=== PATIENT | male | born 1970 | race Two or more races ===

== ENCOUNTER 2024-07-07 08:27 | Inpatient (IN) | payer MEDICAID, OTHER ==
[2024-07-07] VITALS (14 sets, daily range): BP systolic 94–214; BP diastolic 41–131; PULSE 74–96; RESP 10–24; TEMP 97.2–98.6; O2SAT 90–98
[~2024-07-07] VITALS: Ht 177.8 cm; Wt 136.6 kg
[2024-07-07] MEDS: hydrALAZINE HCL 20 MG/ML VL IV ONE (08:57)
[2024-07-07 09:10] LABS: Basophils # (auto) 0 10 ^3/uL (0-0.2); Eosinophils # (auto) 0.2 10 ^3/uL (0-0.8); Eosinophils % (auto) 4.4 % (0.0-7.0); Hematocrit 52.4 % (41.0-53.0); Hemoglobin 16.9 g/dL (13.5-17.5); Lymphocytes # (auto) 1.7 10 ^3/uL (0.4-5.4); Lymphocytes % (auto) 39.3 % (10.0-50.0); Mean Corpuscular Hemoglobin 30.5 pg (28.0-32.0); Mean Corpuscular Hgb Conc. 32.3 g/dL (32.0-36.0); Mean Corpuscular Volume 94.2 fL (80.0-100.0); Monocytes # (auto) 0.7 10 ^3/uL (0-1.3); Monocytes % (auto) 15.4 % (0.0-12.0); Neutrophils # (auto) 1.8 10 ^3/uL (1.6-8.6); Neutrophils % (auto) 39.9 % (37.0-80.0); Nucleated Red Blood Cells % 0.2 %; Platelet Count (auto) 173 10^3/uL (140-450); Red Blood Cells 5.56 10^6/uL (4.5-5.90); Red Cell Distribution Width 14.2 % (11.8-14.3); White Blood Cell 4.4 10^3/uL (4.4-10.8)
--- NOTE | 2024-07-07 09:37 | DVH ---
XY CHEST TWO VIEWS ROUTINE, HISTORY: cp COMPARISON: None None TECHNICAL DATA: 2 view of the chest was obtained. FINDINGS: Lines and tubes: None Cardiomediastinal silhouette: normal Pulmonary vasculature: normal Lung expansion: normal Lung airspace: normal Lung interstitium: normal Pleura: normal Pneumothorax: no Bones: Unremarkable Other: no IMPRESSION: No acute intrathoracic abnormality.
[2024-07-07 09:52] LABS: Chloride 102 mmol/L (98-107); Potassium 4.1 mmol/L (3.5-5.1); Sodium 139 mmol/L (136-145)
--- NOTE | 2024-07-07 09:52 | ED.PDOC ---
HPI Comments 54-year-old male with PMHx HTN presents with a chief complaint of HTN and Chest Pain. Patient states that his pain is localized to his substernal region, nonradiating, describes as pressure, is consistent in timing, and rates his pain a 7/10. Patient mentions that he has noticed that his blood pressure has been running high for the past 2 weeks, but denies any medications. Patient is not compliant with his HTN medication as he states "I don't like waking up in the middle of the night to go pee". Patient is also a smoker. Chief Complaint: High Blood Pressure Time Seen by MD: 08:53 Primary Care Provider: none Reviewed Notes: Medications, Allergies Allergies: Coded Allergies: NO KNOWN ALLERGIES (Unverified , 07/07/24) Information Source: Patient Mode of Arrival: Ambulatory Severity: Moderate Timing: Days Duration: Since onset Prehospital treatment: None Location: Substernal Radiation: No Radiation Quality: Pressure Onset: At Rest Cardiac Risk Factors: Smoker, HTN PE Risk Factors: None History of: None Past Medical History PAST MEDICAL HISTORY: HTN Surgical History: Denies all surgeries Family History Family History: Reviewed,noncontributory to illness Social History Smoker: Cigarettes Alcohol: Denies ETOH Use Drugs: Denies Drug Use Lives In: Home Constitutional: denies: chills, diaphoresis, fatigue, fever, malaise, sweats, weakness, others EENTM: denies: blurred vision, double vision, ear bleeding, ear discharge, ear drainage, ear pain, ear ringing, eye pain, eye redness, hearing loss, mouth pain, mouth swelling, nasal discharge, nose bleeding, nose congestion, nose pain, photophobia, tearing, throat pain, throat swelling, voice changes, others Respiratory: denies: cough, hemoptysis, orthopnea, SOB at rest, shortness of breath, SOB with excertion, stridor, wheezing, others Cardiovascular: reports: chest pain; denies: dizzy spells, diaphoresis, Dyspnea on exertion, edema, irregular heart beat, left arm pain, lightheadedness, palpitations, PND, syncope, others Gastrointestinal: denies: abdomen distended, abdominal pain, blood streaked bowels, constipated, diarrhea, dysphagia, difficulty swallowing, hematemesis, melena, nausea, poor appetite, poor fluid intake, rectal bleeding, rectal pain, vomiting, others Genitourinary: denies: burning, dysuria, flank pain, frequency, hematuria, incontinence, penile discharge, penile sore, pain, testicle pain, testicle swelling, urgency, others Neurological: denies: dizziness, fainting, headache, left sided numbness, left sided weakness, numbness, paresthesia, pre-existing deficit, right sided numbness, right sided weakness, seizure, speech problems, tingling, tremors, weakness, others Musculoskeletal: denies: back pain, gout, joint pain, joint swelling, muscle pain, muscle stiffness, neck pain, others Integumetry: denies: bruises, change in color, change in hair/nails, dryness, laceration, lesions, lumps, rash, wounds, others Allergic/Immunocompromised: denies: Difficulty Healing, Frequent Infections, Hives, Itching, others Hematologic/Lymphatic: denies: anemia, blood clots, easy bleeding, easy bruising, swollen glands, others Endocrine: denies: excessive hunger, excessive sweating, excessive thirst, excessive urination, flushing, intolerance to cold, intolerance to heat, unexplained weight gain, unexplained weight loss, others Psychiatric: denies: anxiety, bipolar disorder, depression, hopeless, panic disorder, schizophrenia, sleepless, suicidal, others All Other Systems: Reviewed and Negative Physical Exam General Appearance: Moderate Distress, Obese HEENT: Normal ENT Inspection, Pharynx Normal, TMs Normal Neck: Full Range of Motion, Non-Tender, Normal, Normal Inspection Respiratory: Chest Non-Tender, Lungs Clear, No Accessory Muscle Use, No Respiratory Distress, Normal Breath Sounds Cardiovascular: No Edema, No JVD, No Murmur, No Gallop, Normal Peripheral Pulses, Regular Rate/Rhythm, Other (HYPERTENSIVE, CHEST PRESSURE) Breast Exam: Deferred Gastrointestinal: No Organomegaly, Non Tender, No Pulsatile Mass, Normal Bowel Sounds, Soft Genitalia: Deferred Pelvic: Deferred Rectal: Deferred Extremities: No calf tenderness, Normal capillary refill, Normal inspection, Normal range of motion, Non-tender, No pedal edema Musculoskeletal : Apperance: Normal Neurologic: Alert, stockholder II-XII nml as Tested, No Motor Deficits, Normal Affect, Normal Mood, No Sensory Deficits Cerebellar Function: Normal Reflexes: Normal Skin: Dry, Normal Color, Warm Lymphatic: No Adenopathy EKG EKG #1: Pulse Rate (adult): 85 Totz: Normal Cardiac Rhythm: NSR Block: None Hypertrophy: None ST: Normal EKG #2: Pulse Rate (adult): 77 Totz: Normal Cardiac Rhythm: NSR Block: None Hypertrophy: None ST: Normal Comments INVERTED T WAVES IN LEAD 3 AVF, V5 & V6 Was a procedure done? Was a procedure done?: No CP Differential Dx Differential Diagnosis: Other Differential Diagnosis: Angina, Aortic dissection, Chest Wall Pain, Costochondritis, Esophageal reflux/spasm, Gastritis, Pericarditis, Pneumonia, Pneumothorax, Pulmonary Embolus X-Ray, Labs, Meds, VS Vital Signs Date Time Temp Pulse Resp B/P (MAP) Pulse Ox O2 Delivery O2 Flow Rate FiO2 07/07/24 10:46 77 16 142/96 07/07/24 10:18 81 16 176/103 07/07/24 10:02 81 16 176/103 (127) 96 07/07/24 09:52 85 07/07/24 08:57 198/134 07/07/24 08:44 74 16 98 Room Air* 0 21 07/07/24 08:40 88 07/07/24 08:37 97.4 93 19 207/149 (168) 96 Lab Test 07/07/24 09:50 07/07/24 08:52 Range/Units Troponin I High Sensitivity 762 *H 98 *H </=54 ng/L White Blood Count 4.4 4.4-10.8 10^3/uL Red Blood Count 5.56 4.5-5.90 10^6/uL Hemoglobin 16.9 13.5-17.5 g/dL Hematocrit 52.4 41.0-53.0 % Mean Corpuscular Volume 94.2 80.0-100.0 fL Mean Corpuscular Hemoglobin 30.5 28.0-32.0 pg Mean Corpuscular Hemoglobin Concent 32.3 32.0-36.0 g/dL Red Cell Distribution Width 14.2 11.8-14.3 % Platelet Count 173 140-450 10^3/uL Mean Platelet Volume 9.1 6.9-10.8 fL Neutrophils (%) (Auto) 39.9 37.0-80.0 % Lymphocytes (%) (Auto) 39.3 10.0-50.0 % Monocytes (%) (Auto) 15.4 H 0.0-12.0 % Eosinophils (%) (Auto) 4.4 0.0-7.0 % Basophils (%) (Auto) 1.0 0.0-2.0 % Neutrophils # (Auto) 1.8 1.6-8.6 10 ^3/uL Lymphocytes # (Auto) 1.7 0.4-5.4 10 ^3/uL Monocytes # (Auto) 0.7 0-1.3 10 ^3/uL Eosinophils # (Auto) 0.2 0-0.8 10 ^3/uL Basophils # (Auto) 0 0-0.2 10 ^3/uL Nucleated Red Blood Cells 0.2 % Prothrombin Time 10.3 9.3-11.8 sec Prothrombin Time INR 0.97 0.9-1.15 Activated Partial Thromboplast Time 28.5 24.5-34.5 SEC Sodium Level 139 136-145 mmol/L Potassium Level 4.1 3.5-5.1 mmol/L Chloride Level 102 98-107 mmol/L Carbon Dioxide Level 28 20-31 mmol/L Anion Gap 9 5-15 Blood Urea Nitrogen 14 9-23 mg/dL Creatinine 1.26 0.700-1.30 mg/dL Glomerular Filtration Rate Calc 68 >90 mL/min BUN/Creatinine Ratio 11.1 10.0-20.0 Serum Glucose 127 H 74-106 mg/dL Hemoglobin A1c 6.0 H <5.7 % A1C Calcium Level 9.4 8.7-10.4 mg/dL Magnesium Level 2.3 1.6-2.6 mg/dL Creatine Kinase 278 H 46-171 U/L B-Type Natriuretic Peptide 96.14 0-100 pg/mL Triglycerides Level 69 < 150 mg/dL Cholesterol Level 217 H < 200 mg/dL LDL Cholesterol 144 H < 100 mg/dL HDL Cholesterol 64 H 40-59 mg/dL Thyroid Stimulating Hormone (TSH) 0.57 0.55-4.78 uIU/mL Current Medications Medications (Trade) Dose Ordered Sig/Nery Route Start Time Stop Time Status Last Admin Hydralazine HCl (Apresoline Injection) 5 mg ONCE ONCE IV 07/07/24 08:45 07/07/24 08:46 DC 07/07/24 08:57 Morphine Sulfate 4 mg ONCE ONCE IV 07/07/24 10:15 07/07/24 10:16 DC 07/07/24 10:18 Ondansetron HCl (Zofran) 4 mg ONCE ONCE IV 07/07/24 10:15 07/07/24 10:16 DC 07/07/24 10:17 PATIENT: FRIDA KAMNACCT: [id number]: [id number] : 1970 LOC: ER ROOM / BED: / AGE / SEX: 54 / M ADM STATUS: REG ER SERVICE 7 ORDERING PHYSICIAN: KIRT ESPINOZA MD PROCEDURE(s): CXR2 - CHEST TWO VIEWS ROUTINE REASON: cp ORDER NUMBER(s): [id number], ACCESSION NUMBER(s): [id number] XY CHEST TWO VIEWS ROUTINE, HISTORY: cp COMPARISON: None None TECHNICAL DATA: 2 view of the chest was obtained. FINDINGS: Lines and tubes: None Cardiomediastinal silhouette: normal Pulmonary vasculature: normal Lung expansion: normal Lung airspace: normal Lung interstitium: normal Pleura: normal Pneumothorax: no Bones: Unremarkable Other: no IMPRESSION: No acute intrathoracic abnormality. ATED BY: ADEBAYO TABARES MD DICTATED DATE/TIME: 07/07/24933 SIGNED BY: ADEBAYO TABARES MD SIGNED DATE/TIME: 07/07/24933 54-year-old male presents here with chest discomfort and high blood pressure. His blood pressure was found to be systolic 200s. Patient was given hydralazine 5 mg IV however it has not helped his chest pressure. At that time patient was given morphine and Zofran IV with some improvement. Initial troponin was borderline negative however 2nd troponin went into the 900s and 3rd troponin went into the 2200. Dr. Hernandez financial services consultant was called after the 2nd troponin financial services consultant regarding patient's increasing troponin. Patient was given aspirin in the ER and additional hydralazine to control his blood pressure. Patient was taken to lab director for immediate catheterization given rising troponins. Blood work has been done which demonstrates a normal CBC, BMP demonstrates mild acute kidney injury but otherwise unremarkable. And elevated troponins as mentioned above. Time of 1ST Reevaluation: 09:23 Reevaluation 1ST: Unchanged Patient Education/Counseling: Diagnosis, Treatment, Prognosis Family Education/Counseling: Diagnosis, Treatment, Prognosis Departure 1 Departure Time of Disposition: 09:48 Impression: Primary Impression: Hypertensive emergency Additional Impressions: Chest pain Qualified Codes: I20.0 - Unstable angina NSTEMI (non-ST elevated myocardial infarction) Disposition: ADMITTED INPATIENT Admit to: Tele Condition: Critical Discharged With: Self Critical Care Note Critical Care Time?: Yes (45 min-critical care time only) Critical care comment: Time spent evaluating the patient, re-evaluating the patient with multiple assessments to see if his chest pain improved, re-evaluating his high blood pressure and treating his blood pressure, repeat evaluations of his laboratory test and evaluations of his troponin, contacting cardiology, speaking to Cardiology, speaking to nursing staff regarding patient. Speaking to patient regarding treatment plan. Concern for immediate cardiac deterioration Stability Stability form required: No Heart Score Heart Score: Heart Score Response (Comments) Value History Highly Suspicious 2 EKG Repolarization Disturb 1 Age 45-64 1 Risk Factors 1 or 2 risk factors 1 Troponin >3 x's Normal limit 2 Total 7 I personally scribed for KIRT ESPINOZA MD ([email or web address]) on 07/07/24 at 09:52. Electronically submitted by Luis M Cloud ([email or web address]). I personally scribed for KIRT ESPINOZA MD ([email or web address]) on 07/07/24 at 09:54. Electronically submitted by Luis M Cloud ([email or web address]). I personally scribed for KIRT ESPINOZA MD ([email or web address]) on 07/07/24 at 11:18. Electronically submitted by Luis M Cloud ([email or web address]). KIRT ESPINOZA MD Jul 07, 2024 09:52
[2024-07-07 09:53] LABS: Anion Gap 9 (5-15); Calcium 9.4 mg/dL (8.7-10.4); Carbon Dioxide 28 mmol/L (20-31)
[2024-07-07 09:58] LABS: BUN/Creatinine Ratio 11.1 (10.0-20.0); Blood Urea Nitrogen 14 mg/dL (9-23)
[2024-07-07 10:00] LABS: Glucose 127 mg/dL (74-106)
[2024-07-07] MEDS: ONDANSETRON HCL 4 MG/2 ML VIAL IV ONE (10:17)
[2024-07-07] MEDS: MORPHINE SULFATE 4 MG/ML SYR/VIAL IV ONE (10:18)
[2024-07-07] MEDS ORDERED: HYDROcodone-ACET 5/325MG TAB PO PRN (11:00)
[2024-07-07] MEDS ORDERED: NITROGLYCERIN 0.4 MG SL TAB SL PRN (11:00)
[2024-07-07] MEDS ORDERED: ACETAMINOPHEN 500 MG TAB or CAP PO PRN (11:00)
[2024-07-07] MEDS ORDERED: ONDANSETRON HCL 4 MG/2 ML VIAL IV PRN (11:00)
[2024-07-07] MEDS ORDERED: MORPHINE SULFATE INJ 2 MG/ml SYRG IV PRN (11:00)
--- NOTE | 2024-07-07 11:01 | DVHHP2 ---
History of Present Illness Reason for Visit: Chest pain, high blood pressure History of Present Illness Patient was a 54-year-old male presenting to the emergency room with reports of intermittent chest pain for the past two days, shortness of breaths, as well as high blood pressure. Patient states that his pressure is rated a 7/10, substernal, with radiation to his back in his left arm. While the patient was in the emergency room the patient also had a bout of nausea, but denied having any dizziness, lightheadedness, or diaphoresis. Significant history of the patient includes high blood pressure for which he was noncompliant with his medication, as well as tobacco and marijuana use. Initial troponin was noted to be 98. Initial 12 lead ECG without any noticeable ST changes. Cardiovascular: HTN Past Surgical History: None Family History: CVA (Mother), DM (Mother), Other (Enlarged heart with father) Smoke: # pack years (40) ALCOHOL: none Drugs: Marijuana Lives: with Family Review of Systems Constitutional: No: Fever, Chills, Sweats, Weakness, Malaise, Other Eyes: No: Pain, Vision change, Conjunctivae inflammation, Eyelid inflammation, Other, Redness ENT: No: Ear pain, Ear discharge, Nose pain, Nose discharge, Nose congestion, Mouth pain, Mouth swelling, Throat pain, Throat swelling, Other Cardiovascular: Chest Pain Gastrointestinal: Nausea Genitourinary: No Dysuria, No Frequency, No Incontinence, No Hematuria, No Retention, No Other Musculoskeletal: No: other, neck pain, shoulder pain, arm pain, back pain, hand pain, leg pain, foot pain Skin: No: Rash, Lesions, Jaundice, Bruising, Other Neurological: No: Weakness, Numbness, Incoordination, Change in speech, Confusion, Seizures, Other Allergies: Coded Allergies: NO KNOWN ALLERGIES (Unverified , 07/07/24) Exam Vital Signs Vital Signs Date Time Temp Pulse Resp B/P (MAP) Pulse Ox O2 Delivery O2 Flow Rate FiO2 07/07/24 10:47 77 16 142/96 (111) 97 07/07/24 08:44 Room Air* 0 21 07/07/24 08:37 97.4 General Appearance: Alert, Oriented X3, Cooperative, mild distress HEENT: Atraumatic, PERRLA Respiratory: Clear to auscultation, Normal air movement Cardiovascular: Normal S1, Normal S2 Abdominal: Normal bowel sounds, No tenderness Extremities: No clubbing, No cyanosis, No edema, Normal pulses, No tenderness/swelling Skin: No rashes, No breakdown, No significant lesion Neuro: Normal gait, Normal speech Psych/Mental Status: Mental status NL, Mood NL Labs/Xrays Labs Test 07/07/24 09:50 07/07/24 08:52 Range/Units White Blood Count 4.4 4.4-10.8 10^3/uL Red Blood Count 5.56 4.5-5.90 10^6/uL Hemoglobin 16.9 13.5-17.5 g/dL Hematocrit 52.4 41.0-53.0 % Mean Corpuscular Volume 94.2 80.0-100.0 fL Mean Corpuscular Hemoglobin 30.5 28.0-32.0 pg Mean Corpuscular Hemoglobin Concent 32.3 32.0-36.0 g/dL Red Cell Distribution Width 14.2 11.8-14.3 % Platelet Count 173 140-450 10^3/uL Mean Platelet Volume 9.1 6.9-10.8 fL Neutrophils (%) (Auto) 39.9 37.0-80.0 % Lymphocytes (%) (Auto) 39.3 10.0-50.0 % Monocytes (%) (Auto) 15.4 H 0.0-12.0 % Eosinophils (%) (Auto) 4.4 0.0-7.0 % Basophils (%) (Auto) 1.0 0.0-2.0 % Neutrophils # (Auto) 1.8 1.6-8.6 10 ^3/uL Lymphocytes # (Auto) 1.7 0.4-5.4 10 ^3/uL Monocytes # (Auto) 0.7 0-1.3 10 ^3/uL Eosinophils # (Auto) 0.2 0-0.8 10 ^3/uL Basophils # (Auto) 0 0-0.2 10 ^3/uL Nucleated Red Blood Cells 0.2 % Sodium Level 139 136-145 mmol/L Potassium Level 4.1 3.5-5.1 mmol/L Chloride Level 102 98-107 mmol/L Carbon Dioxide Level 28 20-31 mmol/L Anion Gap 9 5-15 Blood Urea Nitrogen 14 9-23 mg/dL Creatinine 1.26 0.700-1.30 mg/dL Glomerular Filtration Rate Calc 68 >90 mL/min BUN/Creatinine Ratio 11.1 10.0-20.0 Serum Glucose 127 H 74-106 mg/dL Calcium Level 9.4 8.7-10.4 mg/dL Assessment/Plan Assessment/Plan Impression: -ACS -obesity -hypertensive crisis -nicotine and marijuana dependence Plan: -admit to telemetry unit -start ACS protocol with loading dose of aspirin, nitro patch, Toprol-XL 50 mg p.o. daily -cardiology consultation -echocardiogram -pain management -UDS -repeat ECG. Echocardiogram -lifestyle modification education: 10 minutes spent discussing the need to abstain were decrease all types of smoking. Total time spent with patient discussing and formulating plan of care: 35 minutes. This medical document was created using an electronic medical record system with [employer] dictation system. Although this document has been carefully reviewed, there may still be some phonetic and typographical errors. These areas are purely typographical due to imperfections of the software programs, and do not reflect any compromise in the patient's medical care. Plan discussed with: Patient, Other (RN) My Orders Orders - EMILEE APPIAH SUPERVISOR HISTOLOGY Procedure Category Date Status Time Admit ADMIT 07/07/24 Verified 10:46 Nitroglycerin PHA 07/07/24 Verified Sublingual (Ntrostat 11:00 Morphine Sulfate PHA 07/07/24 Verified Injection 11:00 Stat Ekg For Chest [facility] 07/07/24 Verified Pain 10:46 Notify Of Changes [facility] 07/07/24 Verified From Base 10:46 Fiscal Officer For [facility] 07/07/24 Verified 24 Hours 10:46 Emergency Dysrhythmia [facility] 07/07/24 Verified Protocol 10:46 Rhythm Strips Once [facility] 07/07/24 Verified Every Shift 10:46 Oxygen By Nasal RT 07/07/24 Verified Cannula 10:46 Aspirin Tablet PHA 07/07/24 Verified 11:00 Aspirin Tablet PHA 07/08/24 Verified 10:00 Nitroglycerin PHA 07/07/24 Verified 0.4mg/Hr (Nitrodur 11:00 Metoprolol Xl PHA 07/07/24 Verified Succinate (Toprol Xl) 11:00 * Cardiology Consult CONS 07/07/24 Verified 10:46 Echo 2d Mode Cardiac US 07/07/24 Verified DOP 10:46 Drug Screen LAB 07/07/24 Verified 10:46 Creatine Kinase LAB 07/07/24 Verified 10:46 Morphine Sulfate PHA 07/07/24 Verified Injection 11:00 Hydrocodone-Acet PHA 07/07/24 Verified 5/325mg Tab ([place] 11:00 Acetaminophen Tablet PHA 07/07/24 Verified (Tylenol Tablet) 11:00 Ondansetron Hcl PHA 07/07/24 Verified (Zofran) 11:00 Albuterol Medneb PHA 07/07/24 Verified (Ventolin Medneb) 11:00 Ipratropium Medneb PHA 07/07/24 Verified (Atrovent Medneb) 11:00 Electrocardigram EKG 07/07/24 Verified 10:46 Date of Service: Jul 07, 2024 Billing Provider: EMILEE APPIAH NP Common Visit Codes: 03967-[id number] INP/OBS CARE (HIGH) Secondary Visit Codes: 15182-[id number] CHNG SMOKING >10MIN EMILEE APPIAH NP Jul 07, 2024 11:01
[2024-07-07] MEDS: ASPirin 81 mg TAB PO ONE ×2 (11:16→11:17)
[2024-07-07] MEDS: NITROGLYCERIN 0.4MG/HR TOPICAL PATCH TD ONE (11:16)
[2024-07-07] MEDS: METOPROLOL SUCCINATE XL 50 MG TAB PO SCH (11:16)
[2024-07-07 12:11] LABS: INR 0.97 (0.9-1.15); Partial Thromboplastin Time 28.5 SEC (24.5-34.5); Prothrombin Time 10.3 sec (9.3-11.8)
[2024-07-07] MEDS: HEPARIN SODIUM (PORCINE) 5000 UNITS/ML 1ML VIAL IV ONE (12:17)
[2024-07-07] MEDS: HEPARIN DRIP/D5W 100UNITS/ML 250 ML IV SCH (12:18)
[2024-07-07 12:42] LABS: Magnesium 2.3 mg/dL (1.6-2.6)
--- NOTE | 2024-07-07 12:52 | ECG ---
[facility] Test Date: 2024-07-07 Test Time: 12:51:30 Pat Name: ARIAS KAM Department: ER Room: 0276T Gender: M [employer] Trainer: MAXIMUS : 1970 Requested By: KIRT ESPINOZA Order Number: [id number] Reading MD: Gino Hernandez Measurements Intervals [place] Rate: 69 P: 57 LA: 201 QRS: 77 QRSD: 90 T: 266 QT: 396 QTc: 425 Interpretive Statements Sinus rhythm Probable lateral infarct, age indeterminate Anteroseptal infarct, old Baseline wander in lead(s) I,II,aVR,V5,V6 Electronically Signed On 07-07-2024 18:50:46 PST by Gino Hernandez Please click the below link to view image of tracing.
--- NOTE | 2024-07-07 13:05 | DVHINCON2 ---
Date Seen: Jul 07, 2024 Referring Physician CHIOMA Emmanuel Reason for Consultation Chest pain History of Present Illness 54-year-old gentleman with a history of hypertension presents with 2-3 weeks of progressive shortness of breath. He developed substernal pressure radiating down his left arm. This was radiating to his back in his jaw. Associated with shortness of breath but no diaphoresis. It is exertional in nature and increases with severity and intensity. He has not been compliant with his medications and does have a history of systemic hypertension. He is not a diabetic. He does smoke about a pack a day. Does not abuse alcohol. No surgical history. Family history CAD. Past Medical History Hypertension. Increased BMI Past Surgical History Denies Allergies: Coded Allergies: NO KNOWN ALLERGIES (Unverified , 07/07/24) Current Medications Current Medications Medications (Trade) Dose Ordered Sig/Nery Route PRN Reason Start Time Stop Time Status Last Admin Nitroglycerin (Ntrostat Sublingual) 0.4 mg Q5MINP PRN SL FOR CHEST PAIN 07/07/24 11:00 Morphine Sulfate 2 mg Q30M PRN IV FOR CHEST PAIN 07/07/24 11:00 Aspirin 81 mg DAILY PO 07/08/24 10:00 Metoprolol Succinate (Toprol Xl) 50 mg DAILY PO 07/07/24 11:00 07/07/24 11:16 Morphine Sulfate 1 mg Q4HPRN PRN IV SEVERE PAIN (7-10 PAIN SCALE) 07/07/24 11:00 Acetaminophen/ Hydrocodone Bitart ([place] 5/325MG Tab) 1 tab Q6HPRN PRN PO MODERATE PAIN (4-6 PAIN SCALE) 07/07/24 11:00 Acetaminophen (Tylenol Tablet Or Capsule) 500 mg Q8HP PRN PO PAIN SCALE 1-3 OR TEMP>100.4 07/07/24 11:00 Ondansetron HCl (Zofran) 4 mg Q6HP PRN IV NAUSEA / VOMITING 07/07/24 11:00 Albuterol (Ventolin Medneb) 2.5 mg Q4HPRN PRN NEB SHORTNESS OF BREATH 07/07/24 11:00 Ipratropium [place] (Atrovent Medneb) 0.5 mg Q4HPRN PRN NEB SHORTNESS OF BREATH 07/07/24 11:00 Heparin Sodium/ Dextrose 250 ml @ 15 mls/hr [id number] IV 07/07/24 11:45 07/07/24 12:18 Review of Systems No constitutional symptoms of fevers chills or weight loss. Cardiac and respiratory as noted above with a history of shortness of breath no diaphoresis or edema. No irregular heart rates. No hemoptysis and or stridor. He does [place] ve history of mild coughing and bronchitis. No hemoptysis. GI and negative for abdominal pain blood in his stools constipation diarrhea dysphagia hematuria frequency flank pain or dysuria. Neurologically negative for dizziness nausea fainting or headaches. Musculoskeletal negative for back pain gout or joint pain. Integumentary negative for bruises dryness or lacerations. Allergy and immunology without history of healing difficulty frequent infection hives or itching. Hematologic lymphatic negative for anemia blood clots blood dyscrasias easy bruising. Endocrine psychiatric negative for excessive hunger sweating or thirst. No history of depression schizophrenia or suicidal ideations. Review of systems otherwise noncontributory with the exception o Vital Signs t noted above Vital Signs Date Time Temp Pulse Resp B/P (MAP) Pulse Ox O2 Delivery O2 Flow Rate FiO2 07/07/24 11:18 77 07/07/24 11:16 141/100 07/07/24 10:47 16 97 07/07/24 08:44 Room Air* 0 21 07/07/24 08:37 97.4 Physical Exam Vital signs are as noted. HEENT examination is otherwise unremarkable conjunctiva is pink correlate well hydrated extraocular movements are intact. Orally hydrated. No bruits. No jugular distention. Few coarse rhonchi in the left with clearing with cough. Heart exam reveals regular S1-S2 soft S4. Abdominal examination is unremarkable. Extremities show adequate perfusion without clubbing cyanosis no edema. N eurologically intact. Labs/Diagnostic Data Labs Test 07/07/24 11:56 07/07/24 08:52 Range/Units Troponin I High Sensitivity 2291 *H </=54 ng/L White Blood Count 4.4 4.4-10.8 10^3/uL Red Blood Count 5.56 4.5-5.90 10^6/uL Hemoglobin 16.9 13.5-17.5 g/dL Hematocrit 52.4 41.0-53.0 % Mean Corpuscular Volume 94.2 80.0-100.0 fL Mean Corpuscular Hemoglobin 30.5 28.0-32.0 pg Mean Corpuscular Hemoglobin Concent 32.3 32.0-36.0 g/dL Red Cell Distribution Width 14.2 11.8-14.3 % Platelet Count 173 140-450 10^3/uL Mean Platelet Volume 9.1 6.9-10.8 fL Neutrophils (%) (Auto) 39.9 37.0-80.0 % Lymphocytes (%) (Auto) 39.3 10.0-50.0 % Monocytes (%) (Auto) 15.4 H 0.0-12.0 % Eosinophils (%) (Auto) 4.4 0.0-7.0 % Basophils (%) (Auto) 1.0 0.0-2.0 % Neutrophils # (Auto) 1.8 1.6-8.6 10 ^3/uL Lymphocytes # (Auto) 1.7 0.4-5.4 10 ^3/uL Monocytes # (Auto) 0.7 0-1.3 10 ^3/uL Eosinophils # (Auto) 0.2 0-0.8 10 ^3/uL Basophils # (Auto) 0 0-0.2 10 ^3/uL Nucleated Red Blood Cells 0.2 % Prothrombin Time 10.3 9.3-11.8 sec Prothrombin Time INR 0.97 0.9-1.15 Activated Partial Thromboplast Time 28.5 24.5-34.5 SEC Sodium Level 139 136-145 mmol/L Potassium Level 4.1 3.5-5.1 mmol/L Chloride Level 102 98-107 mmol/L Carbon Dioxide Level 28 20-31 mmol/L Anion Gap 9 5-15 Blood Urea Nitrogen 14 9-23 mg/dL Creatinine 1.26 0.700-1.30 mg/dL Glomerular Filtration Rate Calc 68 >90 mL/min BUN/Creatinine Ratio 11.1 10.0-20.0 Serum Glucose 127 H 74-106 mg/dL Calcium Level 9.4 8.7-10.4 mg/dL Magnesium Level 2.3 1.6-2.6 mg/dL Creatine Kinase 278 H 46-171 U/L Triglycerides Level 69 < 150 mg/dL Cholesterol Level 217 H < 200 mg/dL LDL Cholesterol 144 H < 100 mg/dL HDL Cholesterol 64 H 40-59 mg/dL Sudden rise in troponin to 01/06/2022 indicative of myocardial injury. EKG shows nonspecific ST segment changes the lateral lead T-wave changes suggesting lateral ischemia. Noted significant hyperlipidemia. Assessment Non ST-elevation myocardial infarction with an acute coronary syndrome ongoing. Recurrent chest pain shortness of breath. Increasing troponins. Lipidemia. Increased BMI. Hypertension. Plan/Recommendation Given recurrent chest pain and shortness of breath an ongoing acute coronary syndrome patient will undergo cardiac catheterization therapeutic intervention. Risks and benefits have been explained. Patient agrees to undergo procedure. Plan discussed with: Patient NYHA Physical activity limitations: Class2(Slight)fatigue,sob Date of Service: Jul 07, 2024 Billing Provider: THANH OLEARY Sr., MD Cardiology Common Codes: 32182-RZQCVQT INP/OBS CARE (High) THANH OLEARY Sr., MD Jul 07, 2024 13:05
[2024-07-07] MEDS: HEPARIN SODIUM (PORCINE) 5000 UNITS/ML 1ML VIAL ONE (13:29)
[2024-07-07] MEDS: MIDAZOLAM HCL 2MG/2ML 2ml VIAL (1mg/ml) ONE ×2 (13:30→14:51)
[2024-07-07] MEDS: fentaNYL CITRATE 100 MCG/2 ML VL ONE (13:30)
[2024-07-07] MEDS: LIDOCAINE 2%HCL (LOCAL ANESTH.) INJ 20ML MDV ONE (13:30)
[2024-07-07] MEDS: VERAPAMIL 2.5MG/ML INJ 2ML VIAL IV ONE (13:30)
[2024-07-07] MEDS: IODIXANOL 320MG/ML 100ML BTL IV ONE ×2 (13:34→14:03)
--- NOTE | 2024-07-07 13:50 | DVHSR ---
APPROVED REPORT EXAM: Two-dimensional and M-mode echocardiogram with Doppler and color Doppler. Blood Pressure: 142/96 mmHg INDICATION ACS RISK FACTORS Obesity: Height: 5'10", Weight: 284 DIMENSIONS LVDd5.6 (3.8-5.7cm)LA (2D)4.5 (1.9-4.0cm)Aortic Root3.9 (2.0-3.7cm) LVDs4.4 (2.5-4.0cm)LA (MM) (1.9-4.0cm)Aortic Cusp Exc2.1 (1.5-2.0cm) EF (%) 45.0 (55-70%)Rt. Atrium4.4 (1.9-4.0cm)Asc. Aorta cm IVSd1.1 (0.7-1.1cm)RV (D) (1.8-2.4cm) PWd1.3 (0.7-1.1cm) Mitral Valve MitralMitral Stenosis E wave0.89m/sMV Mean GR.mmHg A wave0.92m/sMV Peak GR.mmHg E/A ratio1.02D MVAcm2 DECEL [id number] 1/2 Tim[place] Aortic Valve Aortic ValveAortic Stenosis V10.94m/Tiffani Mean GR.4mmHg V21.27m/Tiffani Peak GR.6mmHg LVOT Diameter2.5 (1.8-2.4cm)Doppler AVA3.63cm2 Pulmonic Valve V21.00m/s Other Information Technically limited study due to body habitus. Conclusion Sinus rhythm. Biatrial enlargement. Mild concentric LVH. Valves are normal. EF is diminished. There is anterior septal hypokinesis. Global hypokinesis. EF about 45% with norm al RV function. Doppler is unremarkable. No pericardial effusion masses or vegetations.
--- NOTE | 2024-07-07 13:51 | CODING ---
Date of Service: Jul 07, 2024 Billing Provider: EMILEE APPIAH NP Common Visit Codes: 23463-EANLSTMM CARE-EACH +30MIN EMILEE APPIAH NP Jul 07, 2024 13:51
[2024-07-07] MEDS: SODIUM CHL 0.9% 50 ML ONE (14:34)
[2024-07-07] MEDS: ANGIOMAX 250 MG VIAL IV ONE (14:34)
[2024-07-07] MEDS: ONDANSETRON HCL 4 MG/2 ML VIAL ONE (15:07)
[2024-07-07] MEDS: ALBUTEROL SULF 2.5 MG/0.5ML(0.5%) NEB SOLN NEB PRN (15:41)
[2024-07-07] MEDS: IPRATROPIUM BROM 0.5 MG/2.5ML INH SOL NEB PRN (15:42)
--- NOTE | 2024-07-07 16:48 | DVHOP2 ---
Operative Report -Cardiology Report Details Date: 07/07/24 Preop Diagnosis: Acute coronary syndrome Postop Diagnosis: Coronary artery disease involving the RCA and LAD Surgeon: Thanh Hernandez MD Anesthesiologist: Conscious sedation Anesthesia: Mac, Local ( I personally requested the administration of fentanyl and Versed. I monitored the patient throughout the entirety of the procedure.) Consent: The patient was informed of the risks and benefits of the procedure. These include but are not limited to complications of anesthesia, postoperative infection, incomplete relief of symptoms, recurrence of symptoms, damage to blood vessels, nerves and tendons, deep venous thrombosis, pulmonary embolism and possible need for repeat surgery in the future. Complications: No complications Estimated Blood Loss: 2 cc Findings: Significant RCA and LAD stenosis. Indications for Surgery: Acute coronary syndrome /chest pain Name of Procedure Performed Bilateral cine coronary angiography. Left ventriculography. PTCA and stenting of the LAD and RCA. Procedure Details Procedure Details: Prior local anesthesia with 2% lidocaine to the right wrist and full informed consent obtained the patient was prepped and draped in usual fashion followed by placement of a six [place] sheath into the radial artery through which a Liam catheter was used for ventriculography and cannulation of both right and left coronary ostia. We then took a 3.5 EBU guiding catheter for intervention on the RCA and LAD as will be delineated. Hemodynamics: Aortic blood pressure was 130/80. End-diastolic pressure was 20. There was no gradient across the aortic valve on pullback. Coronary anatomy: The RCA is a large vessel and has moderate plaquing with diffuse irregularities in its proximal mid and distal segments. There is a mid 99% stenosis with a dissection within the RCA. The distal RCA is normal as is the PDA and posterolateral branches. Left main is large and normal. The circumflex is large with two marginals that are normal in the proximal and mid section. The distal circumflex has a eccentric 40-50% stenosis. Left anterior descending coronary artery has a stenosis at its proximal to mid section considered to be about 85-90%. It appears flow limiting. Ventriculography in the KOO projection shows an EF of approximately 35-40%. Angioplasty was performed for which a 3.5 EBU guide was placed with a Specter wire used across the RCA. Pre dilatation with a two five balloon and stenting with a 3.0 by 38 mm stent by Kontrontronic. This was an duncan drug-eluting stent. We then added a 3-0 by 18 stent proximally. We noted a residual dissection distally in the RCA for which a 3-0 by eight was then placed. There was resolution of the dissection. Excellent antegrade flow noted. We then addressed the LAD. We placed a wire across the LAD which was used on the RCA. Without pre dilating given that the lesion appeared soft without calcification we placed a 3.5 mm x 12 mm stent into the RCA lesion. There was excellent antegrade flow without thrombus formation. No dissection. Impression: Two-vessel coronary artery disease involving the RCA and LAD as delineated. Successful stenting of the LAD and RCA. Decreased left ventricular ejection fraction. Elevated left ventricular end-diastolic pressure arrest. Condition Good [facility] Clinical Frailty Scale [facility] Clinical Frailty Scale: Managing Well Stress Test Stress Test Performed: No Dominance Dominance: Right LATASHA LATASHA Flow: Post- Intervention (LATASHA-3), Pre-Intervention (LATASHA-1) Lesion Lesion Complexity: Non-High/Non-C Residual Stenosis post procedu: 0% Disposition Still a Patient THANH HERNANDEZ Sr., MD Jul 07, 2024 16:48
--- NOTE | 2024-07-07 16:50 | DVHPN2 ---
Date of Service: Jul 07, 2024 Billing Provider: THANH OLEARY Sr., MD Cardiology Common Codes: 20517-[id number] INP/OBS CARE (High) Cardiology Secondary Visit Cod: [id number] CHNG SMOKING 3-10M, 24825-WQUBU CHNG SMOKING >10MIN Cardiology Procedure Codes: 73602-DSDTUR VESSEL W/I VASC FAM, 47674 -PTCA W/STENT PLACEMENT, 41174-EDVY ADD CORONARY BRANCH, 65750-GVDC FOR STEMI W/STENT THANH OLEARY Sr., MD Jul 07, 2024 16:50
[2024-07-07] MEDS: hydrALAZINE HCL 20 MG/ML VL IV PRN (18:46)
[2024-07-07] MEDS: IPRATROPIUM BROM 0.5 MG/2.5ML INH SOL NEB ONE (18:51)
[2024-07-07] MEDS: ALBUTEROL SULF 2.5 MG/0.5ML(0.5%) NEB SOLN NEB ONE (18:52)
[2024-07-07 19:22] LABS: INR 1.01 (0.9-1.15); Prothrombin Time 10.7 sec (9.3-11.8)
[2024-07-07] MEDS: ATORVASTATIN 20 MG TAB PO SCH (21:20)
[2024-07-07] MEDS: cloNIDine HCL 0.1 MG TAB PO ONE (21:20)
[2024-07-08] VITALS (13 sets, daily range): BP systolic 132–166; BP diastolic 88–103; PULSE 66–96; RESP 16–19; TEMP 97.6–98.3; O2SAT 90–100
[2024-07-08 05:56] LABS: Basophils # (auto) 0 10 ^3/uL (0-0.2); Basophils % (auto) 0.5 % (0.0-2.0); Eosinophils # (auto) 0.1 10 ^3/uL (0-0.8); Eosinophils % (auto) 2.2 % (0.0-7.0); Hematocrit 48.6 % (41.0-53.0); Hemoglobin 15.6 g/dL (13.5-17.5); Lymphocytes # (auto) 1.7 10 ^3/uL (0.4-5.4); Lymphocytes % (auto) 26.5 % (10.0-50.0); Mean Corpuscular Hemoglobin 30.3 pg (28.0-32.0); Mean Corpuscular Hgb Conc. 32.2 g/dL (32.0-36.0); Mean Corpuscular Volume 94.2 fL (80.0-100.0); Monocytes # (auto) 0.7 10 ^3/uL (0-1.3); Monocytes % (auto) 11.6 % (0.0-12.0); Neutrophils # (auto) 3.8 10 ^3/uL (1.6-8.6); Neutrophils % (auto) 59.2 % (37.0-80.0); Nucleated Red Blood Cells % 0.3 %; Platelet Count (auto) 177 10^3/uL (140-450); Red Blood Cells 5.15 10^6/uL (4.5-5.90); Red Cell Distribution Width 14.5 % (11.8-14.3); White Blood Cell 6.4 10^3/uL (4.4-10.8)
--- NOTE | 2024-07-08 07:23 | DVH ---
EXAM: XR Chest, 1 View CLINICAL INDICATION: flash pulmonary edema, acute hypoxia TECHNIQUE: Frontal view of the chest. COMPARISON: None FINDINGS: LUNGS AND PLEURAL SPACES: Pulmonary congestion and edema. Pneumonia cannot be excluded. No pneumot horax. HEART: Unremarkable. No cardiomegaly. MEDIASTINUM: Unremarkable. Normal mediastinal contour. BONES/JOINTS: Unremarkable. No acute fracture. OTHER FINDINGS: . IMPRESSION: Pulmonary congestion and edema. Pneumonia cannot be excluded.
[2024-07-08 08:32] LABS: Opiate Scree,Urine Neg (NEGATIVE)
[2024-07-08 08:33] LABS: Amphetamine Screen, Urine Neg (NEGATIVE); Barbiturate Scree,Urine Neg (NEGATIVE); Phencyclidine Screen, Urine Neg (NEGATIVE)
[2024-07-08 08:34] LABS: Benzodiazephine Screen, Urine Pos (NEGATIVE); Cannabinoid Screen, Urine Pos (NEGATIVE); Cocaine Screen, Urine Neg (NEGATIVE)
[2024-07-08] MEDS: FUROSEMIDE 20 MG/2 ML VIAL IV ONE ×2 (09:43→10:45)
[2024-07-08] MEDS: ASPirin 81 mg TAB PO SCH (09:44)
[2024-07-08] MEDS: LISINOPRIL 5 MG TAB PO SCH (09:44)
[2024-07-08] MEDS: CLOPIDOGREL BISULFATE 75 MG TAB PO SCH (09:44)
[2024-07-08] MEDS: LISINOPRIL 20 MG TAB PO ONE (10:45)
--- NOTE | 2024-07-08 11:09 | DVHPN2 ---
Consult Progress Note Date Seen: Jul 08, 2024 Subjective Review of Systems: CVS:Normal, RESPIRATORY:Normal, NEURO:Normal Other Systems: Denies any cardiac symptoms. Right wrist incision is intact Objective vital signs Vital Sign Date Time Temp Pulse Resp B/P (MAP) Pulse Ox O2 Delivery O2 Flow Rate FiO2 07/08/24 09:44 166/100 07/08/24 09:44 77 07/08/24 08:34 98.1 17 94 98.1 07/08/24 08:00 Room Air* 0 21 Total Intake and Output 07/07/24 07/07/24 07/08/24 15:00 23:00 07:00 Intake Total 15 ml 1300 ml Balance 15 ml 1300 ml medications Current Medications Medications Dose Ordered Sig/Nery Route Start Time Stop Time Status Last Admin Dose Admin Nitroglycerin 0.4 mg Q5MINP PRN SL 07/07/24 11:00 Morphine Sulfate 2 mg Q30M PRN IV 07/07/24 11:00 Aspirin 81 mg DAILY PO 07/08/24 10:00 07/08/24 09:44 81 MG Metoprolol Succinate 50 mg DAILY PO 07/07/24 11:00 07/08/24 09:44 50 MG Morphine Sulfate 1 mg Q4HPRN PRN IV 07/07/24 11:00 Acetaminophen/ Hydrocodone Bitart 1 tab Q6HPRN PRN PO 07/07/24 11:00 Acetaminophen 500 mg Q8HP PRN PO 07/07/24 11:00 Ondansetron HCl 4 mg Q6HP PRN IV 07/07/24 11:00 Albuterol 2.5 mg Q4HPRN PRN NEB 07/07/24 11:00 07/08/24 08:51 2.5 MG Ipratropium [place] 0.5 mg Q4HPRN PRN NEB 07/07/24 11:00 07/08/24 08:51 0.5 MG Atorvastatin Calcium 40 mg HS PO 07/07/24 22:00 07/07/24 21:20 40 MG Clopidogrel Bisulfate 75 mg DAILY PO 07/08/24 10:00 07/08/24 09:44 75 MG Hydralazine HCl 10 mg Q6HP PRN IV 07/07/24 17:45 07/07/24 18:46 10 MG Lisinopril 2.5 mg DAILY PO 07/08/24 10:00 07/08/24 09:44 2.5 MG Examination: LUNGS:Normal, CVS:Normal, NEURO:Normal laboratory and microbiology Laboratory Tests 07/08/24 04:43 07/07/24 08:52 Test 07/07/24 08:52 Range/Units Serum Glucose 127 H 74-106 mg/dL Problem List/Assessment/Plan Problem List/Assessment/Plan Acute myocardial infarction status post PTCA of the LAD and RCA x 3DES Acute HFmrEF, newly diagnosed Hypertensive urgency Prediabetes, newly diagnosed Dyslipidemia Obesity Plan/Recommendations (Dr. Hernandez) The patient underwent a successful two-vessel stenting of the LAD and RCA including three JUSTIN. Denies any further cardiac symptoms. A transthoracic echocardiogram revealed a LVEF of 45% with normal RV function and anteroseptal hypokinesis. Continue dual-antiplatelet therapy, lipid lowering agent, and GDMT for HFmrEF including BB. Repeat a transthoracic echocardiogram with 3 months of medical therapy to re-evaluate left ventricular function. Continue aggressive blood pressure control for a target SBP <140 mmHg. Up-titrate current medications as needed. Strongly counseled on Mediterranean diet, exercise, weight loss, and medical compliance. Follow-up with Cardiology within 1-2 weeks post-discharge (insurance out of area). There is no further cardiac work-up indicated at this time. CMP pending at this time. Kindly call if in need to re-consult. Thank you for allowing us to care for this patient. This medical document was created using an electronic medical record system with voice recognition software and computerized dictation system. Although this document has been carefully reviewed, there might still be some phonetic and typographical errors. Occasional wrong-word or ``sound-alike substitutions may have occurred due to the inherent limitations of voice recognition software. These areas are purely typographical due to imperfections of the software programs and do not reflect any compromise in the patient's medical care. Please read the chart carefully and recognize, using context, where these substitutions have occurred. Plan discussed with: Patient, Other Date of Service: Jul 08, 2024 Billing Provider: MOOK HANSON Cardiology Common Codes: 31122-[id number] HOSP CARE(High MOOK HANSON Jul 08, 2024 11:09
[2024-07-08 12:15] LABS: Alanine Aminotransferase 36 U/L (7-40); Albumin 4.3 g/dL (3.2-4.8); Alkaline Phosphatase 67 U/L (46-116); Anion Gap 7 (5-15); Aspartate Aminotransferase 34 U/L (13-40); BUN/Creatinine Ratio 9.1 (10.0-20.0); Blood Urea Nitrogen 12 mg/dL (9-23); Calcium 9.7 mg/dL (8.7-10.4); Carbon Dioxide 30 mmol/L (20-31); Chloride 101 mmol/L (98-107); Glucose 97 mg/dL (74-106); Potassium 4.5 mmol/L (3.5-5.1); Sodium 138 mmol/L (136-145)
[2024-07-08 12:16] LABS: Total Protein 6.2 g/dL (5.7-8.2)
[2024-07-08 12:18] LABS: Bilirubin, Total 1.5 mg/dL (0.2-1.0)
--- NOTE | 2024-07-08 14:10 | DVHPN2 ---
Subjective Patient reports resolution of chest pain and shortness of breath. Reviewed: Care Plan, H&P, Labs, Medications, Previous Orders Changes from previous H/P or p: No Changes General: Per HPI Eyes: No Pain, No Vision change, No Conjunctivae inflammation, No Eyelid inflammation, No Other, No Redness ENT: No Ear pain, No Ear discharge, No Nose pain, No Nose discharge, No Nose congestion, No Mouth pain, No Mouth swelling, No Throat pain, No Throat swelling, No Other Cardiovascular: Chest Pain Gastrointestinal: Nausea Genitourinary: No Dysuria, No Frequency, No Incontinence, No Hematuria, No Retention, No Other Musculoskeletal: No other, No neck pain, No shoulder pain, No arm pain, No back pain, No hand pain, No leg pain, No foot pain Skin: No Rash, No Lesions, No Jaundice, No Bruising, No Other Objective Vitals Vital Signs Date Time Temp Pulse Resp B/P (MAP) Pulse Ox O2 Delivery O2 Flow Rate FiO2 07/08/24 12:55 97.9 66 17 132/90 (104) 96 97.9 07/08/24 10:00 Room Air* 0 21 Intake/Output Intake and Output 07/08/24 07:00 Intake Total 1315 ml Balance 1315 ml Intake Oral 1300 ml IV Total 15 ml # Voids 3 General Appearance: Alert, Oriented X3, Cooperative, No acute distress HEENT: Atraumatic, PERRLA Lungs: Clear to auscultation, Normal air movement Cardiovascular: Normal S1, Normal S2 Abdomen: Normal bowel sounds, Soft, No tenderness Musculoskeletal: Normal sensory function, Normal motor function Neuro: Normal gait, Normal speech Psych/Mental Status: Mental status NL, Mood NL Medications Current Medications Medications Dose Ordered Sig/Nery Route Start Time Stop Time Status Last Admin Dose Admin Nitroglycerin 0.4 mg Q5MINP PRN SL 07/07/24 11:00 Morphine Sulfate 2 mg Q30M PRN IV 07/07/24 11:00 Aspirin 81 mg DAILY PO 07/08/24 10:00 07/08/24 09:44 81 MG Metoprolol Succinate 50 mg DAILY PO 07/07/24 11:00 07/08/24 09:44 50 MG Morphine Sulfate 1 mg Q4HPRN PRN IV 07/07/24 11:00 Acetaminophen/ Hydrocodone Bitart 1 tab Q6HPRN PRN PO 07/07/24 11:00 Acetaminophen 500 mg Q8HP PRN PO 07/07/24 11:00 Ondansetron HCl 4 mg Q6HP PRN IV 07/07/24 11:00 Albuterol 2.5 mg Q4HPRN PRN NEB 07/07/24 11:00 07/08/24 08:51 2.5 MG Ipratropium [place] 0.5 mg Q4HPRN PRN NEB 07/07/24 11:00 07/08/24 08:51 0.5 MG Atorvastatin Calcium 40 mg HS PO 07/07/24 22:00 07/07/24 21:20 40 MG Clopidogrel Bisulfate 75 mg DAILY PO 07/08/24 10:00 07/08/24 09:44 75 MG Hydralazine HCl 10 mg Q6HP PRN IV 07/07/24 17:45 07/07/24 18:46 10 MG Lisinopril 20 mg DAILY PO 07/09/24 10:00 Empaglifozin 10 mg DAILY PO 07/09/24 10:00 Laboratory Results Laboratory Tests 07/08/24 04:43 07/08/24 11:23 Chemistry Test 07/08/24 11:23 Albumin 4.3 g/dL (3.2-4.8) Calcium Level 9.7 mg/dL (8.7-10.4) Magnesium Level 2.0 mg/dL (1.6-2.6) Total Protein 6.2 g/dL (5.7-8.2) Coagulation Test 07/07/24 18:53 Prothrombin Time 10.7 sec (9.3-11.8) Prothrombin Time INR 1.01 (0.9-1.15) Activated Partial Thromboplast Time 33.0 SEC (24.5-34.5) LFT Test 07/08/24 11:23 Alanine Aminotransferase (ALT) 36 U/L (7-40) Alkaline Phosphatase 67 U/L (46-116) Aspartate Amino Transferase (AST) 34 U/L (13-40) Total Bilirubin 1.5 mg/dL (0.2-1.0) H Labs and/or images reviewed: Labs reviewed by me, Image(s) reviewed by me Assessment/Plan Assessment/Plan Impression: -NSTEMI type 1 -obesity -hypertensive crisis -nicotine and marijuana dependence -acute hypoxic respiratory failure secondary to pulmonary vascular congestion Plan: -events: Patient had stent x3 to RCA, stent x1 to the LAD. Patient had high O2 requirements after procedure. IV diuresis started for CHF noted on chest x-ray. -continue Toprol-XL, Aung Marinelli. -cardiology consultation -echocardiogram: Reviewed -pain management -discussed findings with patient and was bedside. Plans for discharge tomorrow. Repeat chest x-ray and labs in a.m. Total time spent with patient discussing and formulating plan of care: 35 minutes. This medical document was created using an electronic medical record system with [employer] dictation system. Although this document has been carefully reviewed, there may still be some phonetic and typographical errors. These areas are purely typographical due to imperfections of the software programs, and do not reflect any compromise in the patient's medical care. Plan discussed with: Patient, Spouse, Other (RN) My Orders Orders - EMILEE APPIAH NP Procedure Category Date Status Time Hydralazine Injection PHA 07/07/24 In Process (Apresoline Inject 17:45 Chest Xray 1 View XY 07/08/24 Resulted 07:00 Basic Metabolic Panel LAB 07/09/24 Verified 04:00 Chest Portable XY 07/09/24 Logged 04:00 Date of Service: Jul 08, 2024 Billing Provider: EMILEE APPIAH NP Common Visit Codes: [id number] INP/OBS CARE(HIGH) EMILEE APPIAH NP Jul 08, 2024 14:10
[2024-07-08] MEDS ORDERED: LOSARTAN POTASSIUM 25 MG TAB PO SCH (22:00)
[2024-07-09] VITALS (7 sets, daily range): BP systolic 150–164; BP diastolic 90–107; PULSE 76–97; RESP 19–20; TEMP 97.8–98.3; O2SAT 96–98
--- NOTE | 2024-07-09 01:04 | ECG ---
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
[2024-07-09] MEDS: MORPHINE SULFATE INJ 2 MG/ml SYRG IV PRN (02:30)
--- NOTE | 2024-07-09 07:39 | DVH ---
EXAM: XR Chest, 1 View CLINICAL INDICATION: chf TECHNIQUE: Frontal view of the chest. COMPARISON: XY CHEST XRAY 1 VIEW on DOS: 07/08/24 FINDINGS: LUNGS AND PLEURAL SPACES: Unremarkable. No consolidation. No pneumothorax. HEART: Unremarkable. No cardiomegaly. MEDIASTINUM: Unremarkable. Normal mediastinal contour. BONES/JOINTS: Unremarkable. No acute fracture. OTHER FINDINGS: . None. IMPRESSION: No acute cardiopulmonary process.
[2024-07-09 07:48] LABS: Anion Gap 9 (5-15); Carbon Dioxide 28 mmol/L (20-31); Chloride 104 mmol/L (98-107); Potassium 3.9 mmol/L (3.5-5.1); Sodium 141 mmol/L (136-145)
[2024-07-09 07:49] LABS: Calcium 10.1 mg/dL (8.7-10.4)
[2024-07-09 07:54] LABS: BUN/Creatinine Ratio 8.1 (10.0-20.0); Blood Urea Nitrogen 10 mg/dL (9-23)
--- NOTE | 2024-07-09 08:04 | ECG ---
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
[2024-07-09 08:11] LABS: Glucose 111 mg/dL (74-106)
[2024-07-09] MEDS ORDERED: CLOP75TA70 PO (08:54)
[2024-07-09] MEDS ORDERED: LOSA25TA5 PO (08:54)
[2024-07-09] MEDS ORDERED: EMPA1TAB PO (08:54)
[2024-07-09] MEDS ORDERED: ASPI-325 PO (08:54)
[2024-07-09] MEDS ORDERED: METO-6 PO (08:54)
[2024-07-09] MEDS ORDERED: LISINOPRIL 20 MG TAB PO SCH (10:00)
[2024-07-09] MEDS: LOSARTAN POTASSIUM 25 MG TAB PO SCH (10:01)
[2024-07-09] MEDS: EMPAGLIFLOZIN 10 MG TAB PO SCH (10:02)
--- NOTE | 2024-07-09 10:29 | ECG ---
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
--- NOTE | 2024-07-09 10:41 | DVHDS2 ---
Discharge Summary Date of Admission Jul 07, 2024 at 10:46 Date of Discharge: Jul 09, 2024 Admitting Diagnosis NSTEMI type 1 Labs/Diagnostic Data: Laboratory Results Test 07/09/24 05:49 07/08/24 11:23 07/08/24 08:00 07/08/24 04:43 Sodium Level 141 mmol/L (136-145) Potassium Level 3.9 mmol/L (3.5-5.1) Chloride Level 104 mmol/L (98-107) Carbon Dioxide Level 28 mmol/L (20-31) Anion Gap 9 (5-15) Blood Urea Nitrogen 10 mg/dL (9-23) Creatinine 1.24 mg/dL (0.700-1.30) Glomerular Filtration Rate Calc 69 mL/min (>90) BUN/Creatinine Ratio 8.1 (10.0-20.0) Serum Glucose 111 mg/dL (74-106) Calcium Level 10.1 mg/dL (8.7-10.4) Magnesium Level 2.0 mg/dL (1.6-2.6) Total Bilirubin 1.5 mg/dL (0.2-1.0) Aspartate Amino Transferase (AST) 34 U/L (13-40) Alanine Aminotransferase (ALT) 36 U/L (7-40) Alkaline Phosphatase 67 U/L (46-116) Total Protein 6.2 g/dL (5.7-8.2) Albumin 4.3 g/dL (3.2-4.8) Urine Opiates Screen Neg (NEGATIVE) Urine Fentanyl Screen Pos (NEGATIVE) Urine Barbiturates Screen Neg (NEGATIVE) Urine Phencyclidine Screen Neg (NEGATIVE) Urine Amphetamines Screen Neg (NEGATIVE) Urine Benzodiazepines Screen Pos (NEGATIVE) Urine Cocaine Screen Neg (NEGATIVE) Urine Cannabinoids Screen Pos (NEGATIVE) White Blood Count 6.4 10^3/uL (4.4-10.8) Red Blood Count 5.15 10^6/uL (4.5-5.90) Hemoglobin 15.6 g/dL (13.5-17.5) Hematocrit 48.6 % (41.0-53.0) Mean Corpuscular Volume 94.2 fL (80.0-100.0) Mean Corpuscular Hemoglobin 30.3 pg (28.0-32.0) Mean Corpuscular Hemoglobin Concent 32.2 g/dL (32.0-36.0) Red Cell Distribution Width 14.5 % (11.8-14.3) Platelet Count 177 10^3/uL (140-450) Mean Platelet Volume 8.9 fL (6.9-10.8) Neutrophils (%) (Auto) 59.2 % (37.0-80.0) Lymphocytes (%) (Auto) 26.5 % (10.0-50.0) Monocytes (%) (Auto) 11.6 % (0.0-12.0) Eosinophils (%) (Auto) 2.2 % (0.0-7.0) Basophils (%) (Auto) 0.5 % (0.0-2.0) Neutrophils # (Auto) 3.8 10 ^3/uL (1.6-8.6) Lymphocytes # (Auto) 1.7 10 ^3/uL (0.4-5.4) Monocytes # (Auto) 0.7 10 ^3/uL (0-1.3) Eosinophils # (Auto) 0.1 10 ^3/uL (0-0.8) Basophils # (Auto) 0 10 ^3/uL (0-0.2) Nucleated Red Blood Cells 0.3 % Test 07/07/24 18:53 07/07/24 11:56 07/07/24 08:52 Prothrombin Time 10.7 sec (9.3-11.8) Prothrombin Time INR 1.01 (0.9-1.15) Activated Partial Thromboplast Time 33.0 SEC (24.5-34.5) Troponin I High Sensitivity 2291 ng/L (</=54) Hemoglobin A1c 6.0 % A1C (<5.7) Creatine Kinase 278 U/L (46-171) B-Type Natriuretic Peptide 96.14 pg/mL (0-100) Triglycerides Level 69 mg/dL (< 150) Cholesterol Level 217 mg/dL (< 200) LDL Cholesterol 144 mg/dL (< 100) HDL Cholesterol 64 mg/dL (40-59) Thyroid Stimulating Hormone (TSH) 0.57 uIU/mL (0.55-4.78) Other Laboratory Tests 07/09/24 05:49 07/08/24 04:43 Brief Hx & Hospital Course: History of Present Illness Patient was a 54-year-old male presenting to the emergency room with reports of intermittent chest pain for the past two days, shortness of breaths, as well as high blood pressure. Patient states that his pressure is rated a 7/10, substernal, with radiation to his back in his left arm. While the patient was in the emergency room the patient also had a bout of nausea, but denied having any dizziness, lightheadedness, or diaphoresis. Significant history of the patient includes high blood pressure for which he was noncompliant with his medication, as well as tobacco and marijuana use. Initial troponin was noted to be 98. Initial 12 lead ECG without any noticeable ST changes. Course of hospitalization: After the patient was 2nd troponin being found elevated, consultation was placed with Cardiology [id number], with patient taken to the cardiac catheterization lab, subsequently receiving three stents to his RCA and one stent to his LAD. Postprocedure, patient had hypotensive episode with resulting pulmonary vascular congestion. Patient was given IV diuresis as well as antihypertensives. The patient was now on room air, chest pain free, and states that all of his previous symptoms with lethargy have resolved. Patient has been cleared for discharge. He will follow up with the cardiology clinic in 1-2 weeks as well as a discharge Clinic in 1-2 weeks. Patient will be continued on dual antiplatelet therapy with Plavix and aspirin, beta-bernie therapy with Toprol-XL 50 mg p.o. daily, as well as Cozaar 25 mg p.o. daily. Patient will also be prescribed statin, and [facility]. He was agreeable with discharge plan. All questions answered. Physical examination General: Alert and Oriented x3. No acute distress. Well-nourished. Eyes: EOMI. Anicteric. HENT: Moist mucous membranes. Lungs: Clear to auscultation bilaterally. No accessory muscle use. Cardiovascular: Regular rate and rhythm. No murmur. No JVD. Abdomen: Soft, non-tender and non-distended. No palpable masses. Extremities: No edema. Non-tender. Skin: No rashes or lesions. Warm. Neurologic: No focal neurological deficits. CN II-XII grossly intact, but not individually tested. Psychiatric: Cooperative. Appropriate mood and affect. Total time spent with patient discussing and formulating plan of care: 35 minutes. A total of 20 minutes was spent with the patient discussing lifestyle modification including diet, smoking cessation, and weight loss. This medical document was created using an electronic medical record system with [employer] dictation system. Although this document has been carefully reviewed, there may still be some phonetic and typographical errors. These areas are purely typographical due to imperfections of the software programs, and do not reflect any compromise in the patient's medical care. Condition at Discharge: Good Final Diagnosis/Problems List NSTEMI Coronary artery disease involving the RCA and LAD Injury diagnosis: -obesity -hypertensive crisis -nicotine and marijuana dependence -acute hypoxic respiratory failure secondary to pulmonary vascular congestion Discharge Disposition: Home Discharge Instruct/Medications Diet: Cardiac 2g Na,low cholest Activity: No Restrictions, As Tolerated Follow Up/Referral: Dr. Hernandez in 1-2 weeks Medications: See medication reconciliation form 36 Discharge Statement: "Patient was advised to return to the ER or call 911 if any headaches, dizziness, shortness of breath, chest pain, abdominal pain, bleeding, fevers, or worsening of medical condition. Patient was counseled about treatment plan, medications, possible side effects, patientverbalized understanding. All questions were answered to the best of my ability. This discharge took greater then 30 minutes in planning, reviewing documentation, counseling the patient, and discussing with other team members." ASSESSMENT ASSESSMENT Assessment NSTEMI Coronary artery disease involving the RCA and LAD Date of Service: Jul 09, 2024 Billing Provider: EMILEE APPIAH NP Common Visit Codes: 33216-BXB/OBS DISCH DAY >30min Secondary Visit Codes: 17111-EXWLQ CHNG SMOKING >10MIN EMILEE APPIAH NP Jul 09, 2024 10:41
[2024-07-09] MEDS ORDERED: ATOR40TA52 PO (10:42)
--- NOTE | 2024-07-09 15:05 | ECG ---
[facility] Test Date: 2024-07-07 Test Time: 10:58:45 Pat Name: ARIAS AKM Department: ER Room: [facility]6T B Gender: M [employer] Set Up Technician: DR DUKESB: 1970 Requested By: KIRT ESPINOZA Order Number: [id number] Reading MD: Measurements Intervals [place] Rate: 77 P: 71 AK: 193 QRS: 96 QRSD: 94 T: 0 QT: 403 QTc: 457 Interpretive Statements Sinus rhythm Biatrial enlargement Borderline right axis deviation Please click the below link to view image of tracing.
== END 2024-07-09 14:30 | disposition home or self-care (01) | DRG 174 ==
LOC: ER 08:27 → OVERFLOW 10:46 → TELE-WESTW 17:11
PROVIDERS: ADMIT Nurse Practitioner Acute Care; ATTEND Nurse Practitioner Acute Care
PROC: 027135Z Dilation of Coronary Artery, Two Arteries with Two Drug-eluting Intraluminal Devices, Percutaneous Approach (ICD-10-PCS; principal; 2024-07-07)
PROC: 4A023N7 Measurement of Cardiac Sampling and Pressure, Left Heart, Percutaneous Approach (ICD-10-PCS; 2024-07-07)
PROC: B211YZZ Fluoroscopy of Multiple Coronary Arteries using Other Contrast (ICD-10-PCS; 2024-07-07)
PROC: B215YZZ Fluoroscopy of Left Heart using Other Contrast (ICD-10-PCS; 2024-07-07)
DX: I21.4 Non-ST elevation (NSTEMI) myocardial infarction (principal); J96.01 Acute respiratory failure with hypoxia; I50.21 Acute systolic (congestive) heart failure; I11.0 Hypertensive heart disease with heart failure; I95.9 Hypotension, unspecified; I25.10 Atherosclerotic heart disease of native coronary artery without angina pectoris; I16.1 Hypertensive emergency; F17.210 Nicotine dependence, cigarettes, uncomplicated; F12.20 Cannabis dependence, uncomplicated; E66.9 Obesity, unspecified; E78.5 Hyperlipidemia, unspecified; Z79.899 Other long term (current) drug therapy; Z82.49 Family history of ischemic heart disease and other diseases of the circulatory system; Z83.3 Family history of diabetes mellitus; Z82.3 Family history of stroke; Z91.148 Patient's other noncompliance with medication regimen for other reason; Z68.41 Body mass index [BMI] 40.0-44.9, adult; I16.9 Hypertensive crisis, unspecified
CPT/HCPCS: 36415; 71045; 71046; 80048; 80053; 80061; 80307; 82550; 83036; 83735; 83880; 84443; 84484; 85025; 85610; 85730; 92928; 92941; 93005; 93306; 93458; 94640; 96365; 96375; 99152; 99291; C1887; G0378; J2250; J2405; Q9967